=== PATIENT | male | born 1980 | race Two or more races ===

== ENCOUNTER 2018-04-16 10:20 | Emergency (ER) | payer OTHER ==
[~2018-04-16] VITALS: Ht 172.7 cm; Wt 99.8 kg
[2018-04-16 12:30] LABS: Urine Bacteria NONE SEEN /hpf (None Seen); Urine Blood Negative /uL (Negative); Urine Mucus FEW (None Seen); Urine Specific Gravity 1.025 (1.001-1.035); Urine WBC 2 /hpf (0 - 3)
[2018-04-16 12:39] LABS: Basophils # (auto) 0 uL; Basophils % (auto) 0.3 % (0.0-2.0); Eosinophils # (auto) 0.2 uL; Eosinophils % (auto) 1.8 % (0.0-7.0); Hematocrit 46.7 % (41.0-53.0); Hemoglobin 15.5 g/dL (13.5-17.5); Lymphocytes # (auto) 1.4 uL; Lymphocytes % (auto) 13.4 % (10.0-50.0); Mean Corpuscular Hemoglobin 28.9 pg (28.0-32.0); Mean Corpuscular Hgb Conc. 33.2 g/dL (32.0-36.0); Monocytes # (auto) 0.9 uL; Monocytes % (auto) 8.9 % (0.0-12.0); Neutrophils % (auto) 75.6 % (37.0-80.0); Nucleated Red Blood Cells % 0.1 %; Platelet Count (auto) 184 10^3/uL (140-450); Red Blood Cells 5.37 10^6/uL (4.5-5.90); Red Cell Distribution Width 14.2 % (11.8-14.3); White Blood Cell 10.5 10^3/uL (4.4-10.8)
[2018-04-16 12:59] LABS: BUN/Creatinine Ratio 12.1; Calcium 8.5 mg/dL (8.5-10.1); Potassium 3.9 mmol/L (3.5-5.1)
[2018-04-16 13:02] LABS: Bilirubin, Total 0.5 mg/dL (0.2-1.0); Total Protein 8.3 g/dL (6.4-8.2)
[2018-04-16 13:03] LABS: INR 0.92 (0.9-1.15); Partial Thromboplastin Time 27.5 sec (23.78-33.04); Prothrombin Time 9.9 sec (9.27-12.13)
[2018-04-16 13:36] VITALS: BP 110/65
[2018-04-16] MEDS ORDERED: metroNIDAZOLE 500MG/100ML 100 ML IV ONE (14:15)
[2018-04-16] MEDS ORDERED: cefTRIAXone 1GM/10ml IVPUSH 10 ML IV ONE (14:15)
[2018-04-16] MEDS ORDERED: metroNIDAZOLE 500 MG TAB PO ONE (14:30)
== END 2018-04-16 14:27 | disposition home or self-care (01) ==
LOC: ER 10:20
DX: I88.9 Nonspecific lymphadenitis, unspecified (principal); F41.9 Anxiety disorder, unspecified; F32.9 Major depressive disorder, single episode, unspecified
CPT/HCPCS: 36415; 74176; 80053; 81001; 85025; 85610; 85730; 94761; 96374; 99285; J0696

== ENCOUNTER 2025-07-15 09:09 | Inpatient (IN) | payer OTHER ==
[2025-07-13 09:26] LABS: Hematocrit 48.3 % (41.0-53.0); Hemoglobin 16.2 g/dL (13.5-17.5); Mean Corpuscular Hemoglobin 29.7 pg (28.0-32.0); Mean Corpuscular Volume 88.3 fL (80.0-100.0); Nucleated Red Blood Cells % 0.0 %
[2025-07-13 09:41] LABS: INR 1.0 (0.9-1.15); Partial Thromboplastin Time 29.2 SEC (24.5-34.5); Prothrombin Time 10.6 sec (9.3-11.8)
[2025-07-13 09:55] LABS: Urine Protein, UAD Negative (Negative)
[2025-07-13 10:07] LABS: BUN/Creatinine Ratio 8.2 (10.0-20.0); Calcium 9.4 mg/dL (8.7-10.4); Carbon Dioxide 27 mmol/L (20-31); Glucose 102 mg/dL (74-106); Potassium 4.4 mmol/L (3.5-5.1); Sodium 140 mmol/L (136-145); Total Protein 8.0 g/dL (5.7-8.2)
[2025-07-13 10:08] LABS: Alanine Aminotransferase 68 U/L (7-40); Albumin 4.5 g/dL (3.2-4.8); Alkaline Phosphatase 120 U/L (46-116); Bilirubin, Total 0.8 mg/dL (0.2-1.0); Blood Urea Nitrogen 8 mg/dL (9-23)
[2025-07-13 10:22] LABS: Anion Gap 8 (5-15); Chloride 105 mmol/L (98-107)
[~2025-07-15] VITALS: Ht 177.8 cm; Wt 99.3 kg
[2025-07-15] VITALS (26 sets, daily range): BP systolic 113–122; BP diastolic 74–81; PULSE 65–88; RESP 13–28; TEMP 97.5–98.1; O2SAT 90–100
[2025-07-15] MEDS: ceFAZolin 2 GM/D5W50ml 50 ML IV ONE (09:37)
[2025-07-15] MEDS: CELECOXIB 100 MG CAP ONE (11:25)
[2025-07-15] MEDS: ACETAMINOPHEN IV 100 ML IV ONE (11:25)
[2025-07-15] MEDS: GABAPENTIN 300 MG CAP ONE (11:25)
[2025-07-15] MEDS: ACETAMINOPHEN IV 1000 MG/100ML (10MG/ML) IV ONE ×2 (11:30→13:03)
[2025-07-15] MEDS: GABAPENTIN 300 MG CAP PO ONE (11:30)
[2025-07-15] MEDS: CELECOXIB 100 MG CAP PO ONE (11:30)
[2025-07-15] MEDS ORDERED: PROPOFOL 10 MG/ML 20 ML IV ONE (11:32)
[2025-07-15] MEDS ORDERED: ROCURONIUM 10MG/ML 10ML VIAL IV ONE (11:32)
[2025-07-15] MEDS ORDERED: GLYCOPYRROLATE 0.2 MG/ML 1ML VIAL ONE (11:32)
[2025-07-15] MEDS ORDERED: KETAMINE 50mg/ML 1ml syringe ONE (11:33)
[2025-07-15] MEDS ORDERED: LIDOCAINE 2% (LOCAL ANESTH.) PF 5ml SDV ONE (11:33)
[2025-07-15] MEDS ORDERED: ONDANSETRON HCL 4 MG/2 ML VIAL ONE (11:33)
[2025-07-15] MEDS ORDERED: KETOROLAC TROMETH 30 MG/ML 1ML VIAL ONE (11:33)
[2025-07-15] MEDS ORDERED: LIDOCAINE HCL 2% TOP JELLY 5ML TOP ONE (11:38)
[2025-07-15] MEDS ORDERED: SUGAMMADEX 200mg/2ml Vial (100MG/ML) IV ONE (11:59)
[2025-07-15] MEDS: BUPIVACAINE HCL 0.25% P/F 10 ML VIAL ONE (12:31)
[2025-07-15] MEDS: Lidocaine/Epinephrine 1%-1:100,000 30ML VL ONE (12:31)
[2025-07-15] MEDS ORDERED: HYDROmorphone HCL 2 MG/ML VL/or syr IV PRN (12:45)
[2025-07-15] MEDS ORDERED: METOCLOPRAMIDE HCL 5MG/ml INJ 2ml VIAL IV PRN (12:45)
[2025-07-15] MEDS ORDERED: ACE3T PO (12:50)
--- NOTE | 2025-07-15 13:26 | DVHOP ---
DATE OF SURGERY: 07/15/2025 PREOPERATIVE DIAGNOSIS: Umbilical hernia. POSTOPERATIVE DIAGNOSIS: Umbilical hernia. SURGEON: Umer Del Rio MD COLOR TECHNICIAN: Yogesh Valle NP ANESTHESIA: General endotracheal. ANESTHESIOLOGIST: Ran Cintron. PROCEDURE: Repair of umbilical hernia. DESCRIPTION OF PROCEDURE: Under adequate anesthesia with the patient's skin prepped and draped, a periumbilical incision was made. Adipose tissue was divided down on to the rectus muscle. There was a defect in the rectus muscle through the umbilicus measuring approximately 2 cm in diameter. The incarcerated omentum was reduced. The edges of the hernia defect were underswept to ensure nonadherence of bowel and closure of the defect with nonabsorbable sutures was accomplished. The wound was approximated using Monocryl sutures, Dermabond, glue and Steri-Strips. The patient remained stable throughout the procedure. He left the operating room following an accurate needle and sponge count. His , Haven, was thoroughly informed at [phone]. Umer Del Rio MD PF/JOANA TID: [id number] RECEIPT: [id number]
[2025-07-15] MEDS: ALBUTEROL SULF 2.5 MG/0.5ML(0.5%) NEB SOLN NEB STA (13:49)
[2025-07-15] MEDS: ONDANSETRON HCL 4 MG/2 ML VIAL IV PRN (13:54)
--- NOTE | 2025-07-15 14:48 | DVH ---
CHEST RADIOGRAPH Indication: ATELECTASIS Technique: Single frontal view of the chest was obtained Comparison: None FINDINGS: Lines and Tubes: None Lungs: No focal consolidation. Bronchovascular crowding due 2 low lung volumes. Pleura: No effusion. No pneumothorax. Cardiomediastinal contours: Mild to moderate cardiomegaly. Bones: No acute osseous abnormality. IMPRESSION: Bronchovascular crowding due to low lung volumes. Otherwise, No acute cardiopulmonary disease.
--- NOTE | 2025-07-15 15:38 | DVHHP2 ---
Review of Systems Allergies: Coded Allergies: NO KNOWN ALLERGIES (Unverified , 04/16/18) Exam Vital Signs Vital Signs Date Time Temp Pulse Resp B/P (MAP) Pulse Ox O2 Delivery O2 Flow Rate FiO2 07/15/25 13:59 71 21 96 07/15/25 13:49 Cool Aerosol 8 35 35 07/15/25 10:41 97.5 122/78 (93) 97.5 Labs/Xrays Labs Test 07/13/25 09:12 Range/Units White Blood Count 7.9 4.4-10.8 10^3/uL Red Blood Count 5.47 4.5-5.90 10^6/uL Hemoglobin 16.2 13.5-17.5 g/dL Hematocrit 48.3 41.0-53.0 % Mean Corpuscular Volume 88.3 80.0-100.0 fL Mean Corpuscular Hemoglobin 29.7 28.0-32.0 pg Mean Corpuscular Hemoglobin Concent 33.6 32.0-36.0 g/dL Red Cell Distribution Width 14.0 11.8-14.3 % Platelet Count 166 140-450 10^3/uL Mean Platelet Volume 9.9 6.9-10.8 fL Neutrophils (%) (Auto) 65.8 37.0-80.0 % Lymphocytes (%) (Auto) 19.4 10.0-50.0 % Monocytes (%) (Auto) 9.5 0.0-12.0 % Eosinophils (%) (Auto) 4.9 0.0-7.0 % Basophils (%) (Auto) 0.4 0.0-2.0 % Neutrophils # (Auto) 5.2 1.6-8.6 10 ^3/uL Lymphocytes # (Auto) 1.5 0.4-5.4 10 ^3/uL Monocytes # (Auto) 0.8 0-1.3 10 ^3/uL Eosinophils # (Auto) 0.4 0-0.8 10 ^3/uL Basophils # (Auto) 0 0-0.2 10 ^3/uL Nucleated Red Blood Cells 0.0 % Prothrombin Time 10.6 9.3-11.8 sec Prothrombin Time INR 1.00 0.9-1.15 Activated Partial Thromboplast Time 29.2 24.5-34.5 SEC Urine Color Yellow Yellow Urine Clarity Clear Clear Urine pH 5.5 5.0-9.0 Urine Specific [place] 1.023 1.001-1.035 Urine Protein Negative Negative Urine Ketones Negative Negative Urine Blood Negative Negative /uL Urine Nitrite Negative Negative Urine Bilirubin Negative Negative Urine Urobilinogen Normal Negative mg/dL Urine Leukocyte Esterase Negative Negative /uL Urine RBC <1 0 - 3 /hpf Urine Microscopic WBC 1 0-3 /HPF Urine Squamous Epithelial Cells None seen <5 /hpf Urine Bacteria None seen None Seen /hpf Urine Glucose Normal Normal mg/dL Sodium Level 140 136-145 mmol/L Potassium Level 4.4 3.5-5.1 mmol/L Chloride Level 105 98-107 mmol/L Carbon Dioxide Level 27 20-31 mmol/L Anion Gap 8 5-15 Blood Urea Nitrogen 8 L 9-23 mg/dL Creatinine 0.98 0.700-1.30 mg/dL Glomerular Filtration Rate Calc 96 >90 mL/min BUN/Creatinine Ratio 8.2 L 10.0-20.0 Serum Glucose 102 74-106 mg/dL Calcium Level 9.4 8.7-10.4 mg/dL Total Bilirubin 0.8 0.2-1.0 mg/dL Aspartate Amino Transferase (AST) 41 H 13-40 U/L Alanine Aminotransferase (ALT) 68 H 7-40 U/L Alkaline Phosphatase 120 H 46-116 U/L Total Protein 8.0 5.7-8.2 g/dL Albumin 4.5 3.2-4.8 g/dL SEPSIS Sepsis Screen Physician Orders Oxygen By Face Mask (07/15/25 12:42) Cured Meats Supervisor (07/15/25 12:42) Notify Anesth. For Changes: (07/15/25 12:42) Pulse Ox Assessment (07/15/25 12:42) Discharge To Room Per Criteria (07/15/25 12:42) Discharge (07/15/25 12:51) Oxygen Via Cool Mist Mask (07/15/25 13:03) Med Neb Initial Treatment (07/15/25 13:38) * Hospitalist Consult (07/15/25 ) Chest Portable (07/15/25 14:21) Admit (07/15/25 15:34) Nitroglycerin Sublingual (Ntrostat Subli (07/15/25 15:45) Morphine Sulfate Injection (07/15/25 15:45) Stat Ekg For Chest Pain (07/15/25 15:34) Notify Md Of Changes From Base (07/15/25 15:34) Drawer In Stitch Bonding Machine For 24 Hours (07/15/25 15:34) Emergency Dysrhythmia Protocol (07/15/25 15:34) Rhythm Strips Once Every Shift (07/15/25 15:34) Oxygen By Nasal Cannula (07/15/25 15:34) Clear Liq Diet (07/15/25 Dinner) Furosemide Injection (Lasix Injection) (07/15/25 15:45) Vital Signs Date Time Temp Pulse Resp B/P (MAP) Pulse Ox O2 Delivery O2 Flow Rate FiO2 07/15/25 13:59 71 21 96 07/15/25 13:49 71 19 91 07/15/25 13:49 91 Cool Aerosol 8 35 35 07/15/25 13:49 91 Mask 8.0 07/15/25 12:36 65 24 91 Mask 12.0 07/15/25 12:36 Mask 12.0 91 07/15/25 10:41 97.5 53 20 122/78 (93) 97 97.5 Medications Medications Dose Ordered Sig/Aubrie Route Start Time Stop Time Status Last Admin Dose Admin Acetaminophen 1,000 mg ONCE ONCE IV 07/15/25 12:45 07/15/25 12:54 DC 07/15/25 13:03 1,000 MG Albuterol 2.5 mg ONCE STAT NEB 07/15/25 13:38 07/15/25 13:43 DC 07/15/25 13:49 2.5 MG Bupivacaine HCl 10 ml STK-MED ONCE .ROUTE 07/15/25 11:14 07/15/25 11:14 DC 07/15/25 12:31 3 ML Lidocaine/ Epinephrine 30 ml STK-MED ONCE .ROUTE 07/15/25 11:14 07/15/25 11:14 DC 07/15/25 12:31 3 ML Ondansetron HCl 4 mg ONCE PRN IV 07/15/25 12:45 07/15/25 12:54 DC 07/15/25 13:54 4 MG Assessment/Plan Assessment/Plan SEE DICTATED NOTE Plan discussed with: Patient My Orders Orders - BENJA MINA MD Procedure Category Date Status Time Chest Portable XY 07/15/25 Resulted 14:21 Admit ADMIT 07/15/25 Verified 15:34 Nitroglycerin PHA 07/15/25 Verified Sublingual (Ntrostat 15:45 Morphine Sulfate PHA 07/15/25 Verified Injection 15:45 Stat Ekg For Chest [facility] 07/15/25 Verified Pain 15:34 Notify Md Of Changes [facility] 07/15/25 Verified From Base 15:34 Drawer In Stitch Bonding Machine For [facility] 07/15/25 Verified 24 Hours 15:34 Emergency Dysrhythmia [facility] 07/15/25 Verified Protocol 15:34 Rhythm Strips Once [facility] 07/15/25 Verified Every Shift 15:34 Oxygen By Nasal RT 07/15/25 Verified Cannula 15:34 Clear Liq Diet DIET 07/15/25 Verified Dinner Furosemide Injection PHA 07/15/25 Verified (Lasix Injection) 15:45 Date of Service: Jul 15, 2025 Billing Provider: BENJA MINA MD Common Visit Codes: [id number] INP/OBS CARE (HIGH) BENJA MINA MD Jul 15, 2025 15:38
[2025-07-15] MEDS: FUROSEMIDE 20 MG/2 ML VIAL ONE (15:39)
[2025-07-15] MEDS ORDERED: MORPHINE SULFATE 4 MG/ML SYR/VIAL IV PRN (15:45)
[2025-07-15] MEDS ORDERED: HYDROcodone-ACET 5/325MG TAB PO PRN (15:45)
[2025-07-15] MEDS ORDERED: MORPHINE SULFATE INJ 2 MG/ml SYRG IV PRN ×2 (15:45)
[2025-07-15] MEDS ORDERED: NITROGLYCERIN 0.4 MG SL TAB SL PRN (15:45)
[2025-07-15] MEDS ORDERED: ONDANSETRON HCL 4 MG/2 ML VIAL IV PRN (15:45)
[2025-07-15] MEDS: FUROSEMIDE 20 MG/2 ML VIAL IV ONE (15:50)
--- NOTE | 2025-07-15 16:32 | DVHHP ---
ADMIT DATE: 07/15/2025 HISTORY OF PRESENT ILLNESS: The patient is a 44-year-old gentleman who is being admitted after he underwent umbilical hernia repair. The patient at this time complains of mild shortness of breath and is noted to have low oxygen saturations. No history of nausea or vomiting. No chest pain. REVIEW OF SYSTEMS: Review of rest systems otherwise currently negative. PAST MEDICAL HISTORY: Significant for depression. MEDICATIONS: He takes an antidepressant. ALLERGIES: No known drug allergies. SOCIAL HISTORY: He denies smoke or alcohol. He lives at home with family. FAMILY HISTORY: Negative on exam. PHYSICAL EXAMINATION: GENERAL: The patient is awake, alert. VITAL SIGNS: Temperature of 97.5, pulse 71 per minute, blood pressure is 122/78. SHEENT: Unremarkable. NECK: There is no JVD. No pedal edema. LUNGS: Diminished bilaterally. CARDIOVASCULAR SYSTEM: S1 and S2 is regular without murmurs. ABDOMEN: Soft. There is a dressing in place. NEUROLOGIC: Nonfocal. MUSCULOSKELETAL: Normal. ASSESSMENT AND PLAN: * Hypoxia, likely secondary to atelectasis. The patient will be given an incentive spirometer. * Questionable fluid overload, for which will be given a trial of Lasix. * Obesity. * Depression. * Status post umbilical hernia repair, for which he will be placed on pain medications and a clear liquid diet. MD KWADWO Rice/SMOOTH TID: [id number] RECEIPT: [id number]
[2025-07-15] MEDS: IPRATROPIUM BROM 0.5 MG/2.5ML INH SOL NEB SCH (18:29)
[2025-07-15] MEDS: ALBUTEROL SULF 2.5 MG/0.5ML(0.5%) NEB SOLN NEB SCH (18:29)
[2025-07-16] VITALS (24 sets, daily range): BP systolic 105–129; BP diastolic 60–87; PULSE 60–82; RESP 16–20; TEMP 36.8; O2SAT 85–98
[2025-07-16] MEDS: ACETAMINOPHEN 325 MG TAB PO PRN
--- NOTE | 2025-07-16 05:46 | DVH ---
MEDICAL RECORDS NUMBER: [id number] PROCEDURE: XY CHEST PORTABLE DATE: 07/16/2025 05:22 AM HISTORY: RESP FAILURE Views:1 COMPARISON: XY CHEST PORTABLE on DOS: 07/15/25 FINDINGS/IMPRESSION: Lungs: Allowing for overlying soft tissues, the lungs appear grossly clear. Mediastinum: Mediastinal structures appear unremarkable... Skeletal: The skeletal structures appear unremarkable.
[2025-07-16 06:57] LABS: Hematocrit 44.1 % (41.0-53.0); Hemoglobin 15.0 g/dL (13.5-17.5); Mean Corpuscular Hemoglobin 30.1 pg (28.0-32.0); Mean Corpuscular Volume 88.5 fL (80.0-100.0)
[2025-07-16 07:19] LABS: Alkaline Phosphatase 102 U/L (46-116); Anion Gap 11 (5-15); BUN/Creatinine Ratio 15.1 (10.0-20.0); Blood Urea Nitrogen 14 mg/dL (9-23); Calcium 9.4 mg/dL (8.7-10.4); Carbon Dioxide 24 mmol/L (20-31); Chloride 102 mmol/L (98-107); Potassium 4.1 mmol/L (3.5-5.1); Sodium 137 mmol/L (136-145); Total Protein 7.5 g/dL (5.7-8.2)
[2025-07-16 07:20] LABS: Albumin 4.2 g/dL (3.2-4.8)
[2025-07-16 07:21] LABS: Bilirubin, Total 0.7 mg/dL (0.2-1.0)
[2025-07-16 07:25] LABS: Alanine Aminotransferase 60 U/L (7-40); Glucose 130 mg/dL (74-106)
[2025-07-16 08:49] LABS: Total Cells Counted 100.0 (100)
[2025-07-16] MEDS ORDERED: CEPH500C PO (10:43)
--- NOTE | 2025-07-16 10:45 | DVHDS2 ---
Discharge Summary Date of Admission Jul 15, 2025 at 15:34 Date of Discharge: Jul 16, 2025 Labs/Diagnostic Data: Laboratory Results Test 07/16/25 05:41 07/13/25 09:12 White Blood Count 19.3 10^3/uL (4.4-10.8) Red Blood Count 4.98 10^6/uL (4.5-5.90) Hemoglobin 15.0 g/dL (13.5-17.5) Hematocrit 44.1 % (41.0-53.0) Mean Corpuscular Volume 88.5 fL (80.0-100.0) Mean Corpuscular Hemoglobin 30.1 pg (28.0-32.0) Mean Corpuscular Hemoglobin Concent 34.0 g/dL (32.0-36.0) Red Cell Distribution Width 13.8 % (11.8-14.3) Platelet Count 178 10^3/uL (140-450) Mean Platelet Volume 10.9 fL (6.9-10.8) Neutrophils (%) (Auto) % (37.0-80.0) Lymphocytes (%) (Auto) % (10.0-50.0) Monocytes (%) (Auto) % (0.0-12.0) Basophils (%) (Auto) % (0.0-2.0) Neutrophils # (Auto) 10 ^3/uL (1.6-8.6) Lymphocytes # (Auto) 10 ^3/uL (0.4-5.4) Monocytes # (Auto) 10 ^3/uL (0-1.3) Differential Total Cells Counted 100.0 (100) Neutrophils % (Manual) 85 (37.0-80.0) Band Neutrophils % (Manual) 0 Lymphocytes % (Manual) 9 (10.0-50.0) Monocytes % (Manual) 6 (0-12) Eosinophils % (Manual) 0 (0-7) Basophils % (Manual) 0 (0.0-2.0) Metamyelocytes % (manual) 0 Myelocytes % (Manual) 0 Promyelocytes % (Manual) 0 Blast Cells % (Manual) 0 Reactive Lymphocytes 0 Platelet Estimate Adequate Sodium Level 137 mmol/L (136-145) Potassium Level 4.1 mmol/L (3.5-5.1) Chloride Level 102 mmol/L (98-107) Carbon Dioxide Level 24 mmol/L (20-31) Anion Gap 11 (5-15) Blood Urea Nitrogen 14 mg/dL (9-23) Creatinine 0.93 mg/dL (0.700-1.30) Glomerular Filtration Rate Calc 103 mL/min (>90) BUN/Creatinine Ratio 15.1 (10.0-20.0) Serum Glucose 130 mg/dL (74-106) Calcium Level 9.4 mg/dL (8.7-10.4) Total Bilirubin 0.7 mg/dL (0.2-1.0) Aspartate Amino Transferase (AST) 35 U/L (13-40) Alanine Aminotransferase (ALT) 60 U/L (7-40) Alkaline Phosphatase 102 U/L (46-116) Total Protein 7.5 g/dL (5.7-8.2) Albumin 4.2 g/dL (3.2-4.8) Eosinophils (%) (Auto) 4.9 % (0.0-7.0) Eosinophils # (Auto) 0.4 10 ^3/uL (0-0.8) Basophils # (Auto) 0 10 ^3/uL (0-0.2) Nucleated Red Blood Cells 0.0 % Prothrombin Time 10.6 sec (9.3-11.8) Prothrombin Time INR 1.00 (0.9-1.15) Activated Partial Thromboplast Time 29.2 SEC (24.5-34.5) Urine Color Yellow (Yellow) Urine Clarity Clear (Clear) Urine pH 5.5 (5.0-9.0) Urine Specific [place] 1.023 (1.001-1.035) Urine Protein Negative (Negative) Urine Ketones Negative (Negative) Urine Blood Negative /uL (Negative) Urine Nitrite Negative (Negative) Urine Bilirubin Negative (Negative) Urine Urobilinogen Normal mg/dL (Negative) Urine Leukocyte Esterase Negative /uL (Negative) Urine RBC <1 /hpf (0 - 3) Urine Microscopic WBC 1 /HPF (0-3) Urine Squamous Epithelial Cells None seen /hpf (<5) Urine Bacteria None seen /hpf (None Seen) Urine Glucose Normal mg/dL (Normal) Other Laboratory Tests 07/16/25 05:41 Brief Hx & Hospital Course: see dictated note Condition at Discharge: Good Final Diagnosis/Problems List umbilical hernia Discharge Disposition: Home Discharge Instruct/Medications Diet: Regular Activity: See Comment Activity comment: no heavy lifting Follow Up/Referral: follow up in surgery clinic in two weeks Medications: tylenol#3 called into [facility] if any nausea or vomiting discontinue medication keflex Scheduled Cephalexin Monohydrate (Cephalexin), 1 CAP PO TID Scheduled PRN Acetaminophen W/ Codeine (Tylenol W/Cod #3), 1 TAB PO Q4HP PRN Discharge Statement: "Patient was advised to return to the ER or call 911 if any headaches, dizziness, shortness of breath, chest pain, abdominal pain, bleeding, fevers, or worsening of medical condition. Patient was counseled about treatment plan, medications, possible side effects, patientverbalized understanding. All questions were answered to the best of my ability. This discharge took greater then 30 minutes in planning, reviewing documentation, counseling the patient, and discussing with other team members." ASSESSMENT ASSESSMENT Assessment umbilical hernia Date of Service: Jul 16, 2025 Billing Provider: BENJA MINA MD Common Visit Codes: [id number] DISCH DAY >30min BENJA MINA MD Jul 16, 2025 10:45
--- NOTE | 2025-07-16 10:54 | DVHDS ---
DATE OF DISCHARGE: 07/16/2025 HISTORY OF PRESENT ILLNESS: The patient is a 44-year-old gentleman who was admitted after he was noted to be hypoxic post umbilical hernia repair. HOSPITAL COURSE: The patient did well postoperatively. His oxygen levels improved. Chest x-ray showed evidence of likely atelectasis. The patient has now been ambulating and tolerating old diet. The patient will now be discharged home to resume his home medications as well as to be on Keflex 500 mg t.i.d. for 7 days. He will follow up with Surgery in 2 weeks. FINAL DIAGNOSES: Therefore: * Pneumonic respiratory failure, likely secondary to atelectasis. * Obesity. * SIRS, likely secondary to surgery. * Status post umbilical hernia repair. Time spent in discharge planning and review of plan with the patient and nursing was 38 minutes. MD KWADWO Rice/SILVER TID: [id number] RECEIPT: [id number]
[2025-07-17 11:36] LABS: Hepatitis B Surface Antigen Negative (Negative)
[2025-07-17 12:10] LABS: Hepatitis C Antibody Negative (Negative)
== END 2025-07-16 14:40 | disposition home or self-care (01) | DRG 353 ==
LOC: SUR 09:09 → OVERFLOW 15:34 → TELE-EAST 17:53
PROVIDERS: ADMIT Internal Medicine; ATTEND Internal Medicine
PROC: 0WQF0ZZ Repair Abdominal Wall, Open Approach (ICD-10-PCS; principal; 2025-07-15 11:34)
DX: K42.9 Umbilical hernia without obstruction or gangrene (principal); J18.9 Pneumonia, unspecified organism; J96.91 Respiratory failure, unspecified with hypoxia; E66.9 Obesity, unspecified; F32.A Depression, unspecified; R65.10 Systemic inflammatory response syndrome (SIRS) of non-infectious origin without acute organ dysfunction; Z79.899 Other long term (current) drug therapy; Z68.32 Body mass index [BMI] 32.0-32.9, adult; Y92.238 Other place in hospital as the place of occurrence of the external cause; Y92.89 Other specified places as the place of occurrence of the external cause
CPT/HCPCS: 36415; 71045; 80053; 81001; 85007; 85025; 85027; 85610; 85730; 86803; 86850; 86900; 86901; 87340; 94640; G0378; J0131; J1100; J1885; J2003; J2405; J2704; J3490